=== PATIENT | male | born 1955 | race Caucasian/White ===

== ENCOUNTER 2017-11-09 06:52 | Day surgery (SDC) | payer MEDICARE, OTHER ==
[2017-11-09] MEDS ORDERED: Sodium Chloride 0.9% 10 ML ONE (06:56)
[2017-11-09] MEDS ORDERED: Sodium Tetradecyl Sulfate 1% 20 MG/2 ML SDV ONE (06:56)
[2017-11-09] MEDS ORDERED: Lidocaine 1% with EPINEPHrine 1:100,000 50 ML MDV ONE (06:56)
[2017-11-09] MEDS ORDERED: Heparin Sodium 5,000 Units/ML Vial ONE (06:56)
[2017-11-09] MEDS ORDERED: Midazolam 1 MG/ML 2 ML SDV ONE ×2 (07:27→08:49)
[2017-11-09] MEDS ORDERED: Propofol 200 MG/20 ML SDV ONE ×2 (07:27→08:56)
[2017-11-09] MEDS ORDERED: fentaNYL 100 MCG/2 ML SDV ONE (07:27)
[2017-11-09] MEDS ORDERED: Lactated Ringers 1,000 ML IV SCH (07:45)
[2017-11-09] MEDS ORDERED: Lidocaine 1% w/EPINEPHrine 50 ML, Sodium Bicarbonate 5 MEQ in Sodium Chloride 0.9% 950 ML INJECT ONE (08:15)
[2017-11-09 10:37] VITALS: BP 125/76
--- NOTE | 2017-11-10 08:00 | OR ---
DATE OF PROCEDURE: 11/09/2017 PROCEDURE: 1. Radiofrequency ablation of left greater saphenous vein. 2. Sclerotherapy left leg, multiple. 3. Debridement of ulcer, venous, 1.1 x 2.1 cm, full-thickness (07399). 4. Compression wrapping, 2-stage, 20 mmHg pressure, left leg (23948). PREOPERATIVE DIAGNOSIS: Venous insufficiency with venous ulcer. POSTOPERATIVE DIAGNOSIS: Venous insufficiency with venous ulcer. RISKS: Risks, benefits, alternatives, and limitations including, but not limited to infection bleeding and DVT formation were explained to the patient. They wished to proceed. We also discussed chronic pain and scarring. PROCEDURE IN DETAIL: The patient was placed in supine position. The left GSV was attempted to be accessed at multiple points. It is rather large superficial, however, has extreme tortuosity to it. The first attempt was near the ankle, second attempt was in the calf, and the third access point was accessed at the lower thigh. All these were attempted in the same manner, which is a 21-gauge needle, then exchanged with a 35,000th wire. The sheath, which was 7-[place]ian, was only attempted on the top 2 locations. Once this was introduced, the probe was advanced to 3 cm from the saphenofemoral junction. Tumescent fluid was injected in 1 cm jacket around this to be verified a second and third time. Direct even pressure was held as the probe was deployed x2 proximally, distally, and x1 in all other segments. The sheath and device were then removed. Direct pressure was held for 10 minutes and Dermabond was applied. Sclerotherapy was then performed on the left leg. There were 6 on the left, ranging up to 10 cm in length and sizes were approximately 1 cm. This was always drawn back to ensure intravascular injection only. No more than 2 mL injected in 1 location. Debridement of the ulcer was then performed next. Full-thickness ulceration was noted of the size mentioned. Debridement was performed using a 15 blade in combination with a curette. Mepilex Ag will be placed over this. Two-layer, 2-stage compression wrapping in [id number] with 20 mmHg pressure was performed in proximal to distal gradient. The patient tolerated the procedure well. Earle Boyd MD /[id number]
== END 2017-11-09 10:30 | disposition home or self-care (01) ==
LOC: JP.SDS 06:52
PROVIDERS: ATTEND Surgery
DX: I83.029 Varicose veins of left lower extremity with ulcer of unspecified site (principal); J43.9 Emphysema, unspecified
CPT/HCPCS: 11043; 36471; 36475; C1888; J1642; J1644; J2250; J2704; J3010; J7040; J7050; J7120; J3490

== ENCOUNTER 2022-04-22 13:27 | Emergency (ER) | payer OTHER ==
[2022-04-22] MEDS: Bacitracin Oint 1 GM U/D Packet TOP ONE ×2 (13:52→15:32)
[2022-04-22] MEDS: Diphtheria,Pertussis(Acell),Tetanus Vaccine 0.5 ML Syringe IM ONE (13:52)
[2022-04-22] MEDS: Lidocaine 1% 20 ML MDV INJECT ONE (13:52)
[2022-04-22 14:01] VITALS: BP 102/76; PULSE 110
[2022-04-22] MEDS: traMADol 50 MG Tab PO ONE (15:31)
[2022-04-22] MEDS: Cephalexin 250 MG Cap PO ONE (15:35)
== END 2022-04-22 15:37 | disposition home or self-care (01) ==
LOC: JP.ED 13:27
DX: S62.631B Displaced fracture of distal phalanx of left index finger, initial encounter for open fracture (principal); J44.9 Chronic obstructive pulmonary disease, unspecified; Z88.6 Allergy status to analgesic agent; Z91.041 Radiographic dye allergy status; Z88.5 Allergy status to narcotic agent; Z79.899 Other long term (current) drug therapy; Z23 Encounter for immunization; W22.8XXA Striking against or struck by other objects, initial encounter
CPT/HCPCS: 12001; 73140-26-F1; 73140-F1; 90471; 90715; 99283-25; 99284; A9270-GY